=== PATIENT | female | born 1980 | race African-American/Black ===

== ENCOUNTER 2017-10-07 09:34 | Emergency (ER) | payer BC ==
[~2017-10-07] VITALS: Ht 154.9 cm; Wt 110.1 kg
[2017-10-07 10:18] LABS: HEMATOCRIT 36.6 % (36.0-46.0); HEMOGLOBIN 12.4 G/DL (11.9-15.5); MCH 29.2 PG (29.0-34.0); MCHC 33.9 G/DL (30.0-36.0); MCV 86.1 FL (83-99); PLATELET COUNT 208 K/uL (156-360); RBC DIS.WIDTH-CV 12.5 % (11.8-14.6); RBC DIS.WIDTH-SD 39.1 % (39-53); RED BLOOD COUNT 4.25 M/uL (3.80-5.20); WHITE BLOOD COUNT 7.8 K/uL (4.1-10.2)
[2017-10-07 10:27] LABS: CHLORIDE 103 mEq/L (99-109); POTASSIUM 3.8 mEq/L (3.7-5.4); SODIUM 137 mEq/L (136-147)
[2017-10-07 10:29] LABS: GLUCOSE 92 mg/dL (70-99); TOTAL PROTEIN 7.2 g/dL (6.4-8.3)
[2017-10-07 10:31] LABS: TOTAL BILIRUBIN 0.6 mg/dL (0.0-1.0)
[2017-10-07 10:32] LABS: ALKALINE PHOSPHATASE 65 IU/L (3-129)
[2017-10-07 10:33] LABS: CREATININE 0.8 mg/dL (0.6-1.3); GFR ESTIMATE (CALCULATED) > 59 mL/min/
[2017-10-07 10:34] LABS: AST (GOT) 15 IU/L (2-34); UREA NITROGEN (BUN) 9 mg/dL (9-23)
[2017-10-07 10:35] LABS: ALT (GPT) 19 IU/L (3-49)
[2017-10-07 10:36] LABS: LIPASE 34 U/L (1.0-51.0)
[2017-10-07 10:41] LABS: QUANTITATIVE HCG < 4.0 MIU/ML
[2017-10-07 10:43] LABS: APPEARANCE CLEAR ((CLEAR)); BILIRUBIN NEGATIVE; BLOOD NEGATIVE; COLOR STRAW ((YELLOW)); GLUCOSE (STRIP) NEGATIVE; KETONES NEGATIVE; LEUKOCYTES NEGATIVE; NITRITE NEGATIVE; PROTEIN (STRIP) NEGATIVE; SPECIFIC GRAVITY 1.008 (1.000-1.030); UROBILINOGEN 0.2 MG/DL (0.2-1.0)
[2017-10-07] MEDS ORDERED: CARAFATE1 GM PO (11:42)
[2017-10-07] MEDS ORDERED: NEXIUM40 MG PO (11:42)
[2017-10-07 12:02] VITALS: BP 130/78
== END 2017-10-07 12:04 | disposition home or self-care (01) ==
LOC: EME 09:34
PROVIDERS: Nurse Practitioner Family
DX: K20.9 Esophagitis, unspecified (principal); K27.9 Peptic ulcer, site unspecified, unspecified as acute or chronic, without hemorrhage or perforation; R13.10 Dysphagia, unspecified; R00.1 Bradycardia, unspecified
CPT/HCPCS: 70360; 71046; 80053; 81003; 83690; 84702; 85027; 93005; 99281; 99284